=== PATIENT | male | born 1955 | race Caucasian/White ===

== ENCOUNTER → 2018-11-21 | Outpatient (CLI) | payer OTHER ==
[~2018-11-21] MED LIST: ATOR20TA37 PO; DIAZ5TAB PO; DOXY100C2 PO; DOXY25SU2 PO; FENO134C PO; INSU100I18 SC; INSU100I29 SC; LISI5TAB7 PO; METF10002 PO; OXYC-307 PO
[2018-11-21 11:55] LABS: MICROSCOPIC NOT IND
[2018-11-21 12:00] LABS: BASOPHILS # (AUTO) 0.02 x10^3/uL (0-0.1); BASOPHILS % (AUTO) 0 % (0-1); EOSINOPHILS # (AUTO) 0.07 x10^3/uL (0-0.4); EOSINOPHILS % (AUTO) 1 % (1-7); LYMPHOCYTES # (AUTO) 1.49 x10^3/uL (1-3.4); LYMPHOCYTES % (AUTO) 30 % (22-44); MD NO; MEAN CORPUSCULAR HEMOGLOBIN 29.7 pg (27.5-34.5); MEAN CORPUSCULAR HGB CONC 33.3 g/dL (33.2-36.2); MEAN CORPUSCULAR VOLUME 89.2 fL (81-97); MEAN PLATELET VOLUME 8.5 fL (7.4-10.4); MONOCYTES # (AUTO) 0.44 x10^3/uL (0.2-0.8); MONOCYTES % (AUTO) 9 % (2-9); NEUTROPHILS # (AUTO) 2.92 x10^3/uL (1.8-6.8); NEUTROPHILS % (AUTO) 59 % (42-75); PLATELET COUNT 251 x10^3/uL (130-400); RED BLOOD COUNT 5.01 x10^6/uL (4.38-5.82); RED CELL DISTRIBUTION WIDTH 13.6 % (9.4-14.8)
[2018-11-21 12:01] LABS: CULTURE INDICATED? NO
[2018-11-21 12:06] LABS: ALBUMIN 4.2 g/dL (3.4-5.0); ANION GAP 9 mmol/L (5-15); CALCIUM 9.1 mg/dL (8.5-10.1); CHLORIDE 104 mmol/L (98-107)
[2018-11-21 12:11] LABS: ALANINE AMINOTRANSFERASE 48 U/L (12-78); ALKALINE PHOSPHATASE 43 U/L (45-117); BILIRUBIN,TOTAL 0.5 mg/dL (0.2-1.0); CREATININE 1.36 mg/dL (0.7-1.3); TOTAL PROTEIN 7.1 g/dL (6.4-8.2)
[2018-11-21 12:21] LABS: HCT (SEDRATE) 44.7 % (39.2-51.8)
[2018-11-21 12:27] LABS: INTERNATIONAL NORMALIZED RATIO 1.01 (0.93-1.1); PROTHROMBIN TIME 10.7 Seconds (9.6-11.5)
== END | disposition home or self-care (01) ==
LOC: STAR 10:43
PROVIDERS: ATTEND Orthopaedic Surgery Orthopaedic Surgery of the Spine
DX: Z01.818 Encounter for other preprocedural examination (principal); M43.16 Spondylolisthesis, lumbar region; M48.061 Spinal stenosis, lumbar region without neurogenic claudication; M54.16 Radiculopathy, lumbar region; M41.86 Other forms of scoliosis, lumbar region
CPT/HCPCS: 36415; 71046; 80053; 81003; 85025; 85610; 85651; 85730; 93005

== ENCOUNTER 2018-12-04 10:37 | Inpatient (IN) | payer OTHER ==
[~2018-12-04] VITALS: Ht 177.8 cm; Wt 112.0 kg
[2018-12-04] MEDS ORDERED: THROMBIN 5,000 UNIT VIAL TP ONE ×2 (10:53→16:51)
[2018-12-04] MEDS ORDERED: VANCOMYCIN 1,000 MG ONE (10:53)
[2018-12-04] MEDS ORDERED: TRANEXAMIC ACID 100 MG/ML, 10ML ONE ×2 (10:53)
[2018-12-04] MEDS ORDERED: BUPIVACAINE/PF-EPI 0.5% 1:200K ONE (10:53)
[2018-12-04] MEDS ORDERED: BACITRACIN 50,000 UNIT ONE (10:53)
[2018-12-04] MEDS ORDERED: LACTATED RINGERS 1,000 ML IV SCH (11:28)
[2018-12-04] MEDS ORDERED: LIDOCAINE-MPF 1%, 2ML INFIL ONE (11:30)
[2018-12-04] MEDS ORDERED: VANCOMYCIN PMX 1GM/200ML 200 ML IV STA (12:08)
[2018-12-04] MEDS ORDERED: MIDAZOLAM 1 MG/ML, 2ML ONE (12:44)
[2018-12-04] MEDS ORDERED: FENTANYL PF 250 MCG/5ML ONE ×2 (12:44→16:29)
[2018-12-04] MEDS ORDERED: ROCURONIUM 10 MG/ML,10ML ONE (12:53)
[2018-12-04] MEDS ORDERED: GLYCOPYRROLATE 0.2MG/1ML, 5ML ONE (12:53)
[2018-12-04] MEDS ORDERED: SUCCINYLCHOLINE 20 MG/ML, 10ML ONE (12:53)
[2018-12-04] MEDS ORDERED: GABAPENTIN 300 MG CAPSULE PO ONE (13:00)
[2018-12-04] MEDS ORDERED: ACETAMINOPHEN 500 MG TABLET PO ONE (13:00)
[2018-12-04] MEDS ORDERED: DIAZEPAM 5 MG TABLET PO ONE (13:00)
[2018-12-04] MEDS ORDERED: SCOPOLAMINE PATCH, 1.5MG PATCH.TD72 TD ONE (13:00)
[2018-12-04] MEDS ORDERED: ALBUTEROL SULFATE 2.5 MG/3 ML NPPB PRN (16:30)
[2018-12-04] MEDS ORDERED: DIAZEPAM 5 MG/ML, 2ML IVPush PRN (16:30)
[2018-12-04] MEDS ORDERED: LORazepam 2 MG/ML, 1ML IVPush PRN (16:30)
[2018-12-04] MEDS ORDERED: hydrALAzine 20 MG/ML, 1ML IV PRN (16:30)
[2018-12-04] MEDS ORDERED: ONDANSETRON 2MG/ML, 2ML IV PRN (16:30)
[2018-12-04] MEDS ORDERED: ONDANSETRON ODT 8 MG PO PRN (16:30)
[2018-12-04] MEDS ORDERED: MORPHINE SULFATE 4 MG/ML, 1ML IVPush PRN (16:30)
[2018-12-04] MEDS ORDERED: LABETALOL 5MG/ML, 20ML IV PRN ×2 (16:30→22:00)
[2018-12-04] MEDS ORDERED: EPHEDRINE 50 MG/ML, 1ML IVPush PRN (16:30)
[2018-12-04] MEDS ORDERED: PROMETHAZINE 25 MG/ML, 1ML IV PRN (16:30)
[2018-12-04] MEDS ORDERED: FENTANYL PF 100 MCG/2ML IV PRN (16:30)
[2018-12-04] MEDS ORDERED: OXYcodone 5 MG/5 ML ORAL.SOL UDC PO PRN (16:30)
[2018-12-04] MEDS ORDERED: PROMETHAZINE 12.5 MG SUPP PR PRN (16:30)
[2018-12-04] MEDS ORDERED: MIDAZOLAM 1 MG/ML, 2ML IV PRN (16:30)
[2018-12-04] MEDS ORDERED: HALOPERIDOL 5 MG/ML IV PRN (16:30)
[2018-12-04] MEDS ORDERED: MEPERIDINE/PF 25MG/0.5ML IVPush PRN (16:30)
[2018-12-04] MEDS ORDERED: FENTANYL PF 100 MCG/2ML ONE ×2 (17:54→18:19)
[2018-12-04] MEDS ORDERED: ONDANSETRON 2MG/ML, 2ML ONE ×2 (18:03)
[2018-12-04] MEDS ORDERED: CEFAZOLIN 1,000 MG ONE ×2 (18:03)
[2018-12-04] MEDS ORDERED: PROPOFOL 10 MG/ML, 20ML ONE (18:03)
[2018-12-04] MEDS ORDERED: DEXAMETHASONE 4 MG/ML, 1ML ONE ×2 (18:03)
[2018-12-04] MEDS ORDERED: MEPERIDINE/PF 25MG/ML,1ML ONE (19:11)
[2018-12-04] MEDS ORDERED: HYDROmorphone 1 MG/ML, 1ML ONE (19:45)
[2018-12-04] MEDS ORDERED: OXYcodone 5 MG/5 ML ORAL.SOL UDC ONE (19:46)
[2018-12-04] MEDS: HYDROmorphone 2 MG/ML, 1ML IVPush PRN ×3 (19:50→20:15)
[2018-12-04] MEDS ORDERED: PROMETHAZINE 25 MG/ML, 1ML ONE (20:35)
[2018-12-04] MEDS ORDERED: DIAZEPAM 5 MG/ML, 2ML IV PRN (22:00)
[2018-12-04] MEDS ORDERED: DIPHENHYDRAMINE 50 MG/ML, 1ML IM PRN (22:00)
[2018-12-04] MEDS ORDERED: PROMETHAZINE 25 MG/ML, 1ML IM PRN (22:00)
[2018-12-04] MEDS ORDERED: DIPHENHYDRAMINE 50 MG CAPSULE PO PRN (22:00)
[2018-12-04] MEDS ORDERED: SODIUM CHLORIDE 0.9% 1,000ML IV PRN (22:00)
[2018-12-04] MEDS ORDERED: DEXAMETHASONE 4 MG/ML, 1ML IV PRN (22:00)
[2018-12-04] MEDS ORDERED: DIPHENHYDRAMINE 50 MG/ML, 1ML IVPush PRN (22:00)
[2018-12-04] MEDS ORDERED: ACETAMINOPHEN 650 MG SUPP PR PRN (22:00)
[2018-12-04] MEDS ORDERED: VANCOMYCIN PER PHARMACY MC PRN (22:30)
[2018-12-04] MEDS ORDERED: PHARMACOKINETIC MONITORING MC PRN (22:30)
[2018-12-04] MEDS: DIAZEPAM 5 MG TABLET PO PRN (22:59)
[2018-12-04] MEDS: CEFAZOLIN PMX 1GM/50ML 50 ML IVPB SCH (22:59)
[2018-12-04] MEDS: NS + 20MEQ KCL 1,000 ML IV SCH (22:59)
[2018-12-05 01:45] VITALS: BP 103/59
[2018-12-05] MEDS: ACETAMINOPHEN 325 MG TABLET PO PRN ×2 (02:36→13:26)
[2018-12-05] MEDS: OXYcodone IR 5MG TABLET PO PRN ×2 (02:36→06:24)
[2018-12-05 04:12] VITALS: BP 95/57
[2018-12-05 05:45] LABS: BASOPHILS % (AUTO) 0 % (0-1); EOSINOPHILS % (AUTO) 0 % (1-7); LYMPHOCYTES # (AUTO) 0.75 x10^3/uL (1-3.4); LYMPHOCYTES % (AUTO) 7 % (22-44); MD NO; MEAN CORPUSCULAR HEMOGLOBIN 30.5 pg (27.5-34.5); MEAN CORPUSCULAR HGB CONC 33.9 g/dL (33.2-36.2); MEAN PLATELET VOLUME 8.5 fL (7.4-10.4); MONOCYTES # (AUTO) 0.91 x10^3/uL (0.2-0.8); MONOCYTES % (AUTO) 9 % (2-9); NEUTROPHILS # (AUTO) 8.56 x10^3/uL (1.8-6.8); NEUTROPHILS % (AUTO) 84 % (42-75); PLATELET COUNT 200 x10^3/uL (130-400); RED BLOOD COUNT 3.52 x10^6/uL (4.38-5.82); RED CELL DISTRIBUTION WIDTH 13.7 % (9.4-14.8)
[2018-12-05 05:55] LABS: CREATININE 1.48 mg/dL (0.7-1.3)
[2018-12-05] MEDS: CEFAZOLIN PMX 1GM/50ML 50 ML IVPB SCH ×3 (06:24→22:38)
[2018-12-05] MEDS: INSULIN REGULAR 100 UNITS/ML, 3ML VIAL SQ-INSULIN SCH ×4 (07:10→21:00)
[2018-12-05] MEDS: INSULIN DETEMIR 100 UNITS/ML, PEN SQ-INSULIN SCH (07:40)
[2018-12-05 07:58] VITALS: BP 104/65
[2018-12-05] MEDS: DIAZEPAM 5 MG TABLET PO PRN ×3 (08:02→22:38)
[2018-12-05] MEDS: LISINOPRIL 5 MG TABLET PO SCH (08:31)
[2018-12-05] MEDS: metFORMIN 500 MG TABLET HOMEMEDPO SCH ×2 (08:31→16:30)
[2018-12-05] MEDS: FENOFIBRATE 145 MG TABLET PO SCH (08:31)
[2018-12-05] MEDS: NS + 20MEQ KCL 1,000 ML IV SCH ×2 (08:53→16:29)
[2018-12-05] MEDS: SENNA/DOCUSATE TABLET PO SCH (08:53)
[2018-12-05] MEDS: VANCOMYCIN 1,800 MG in SODIUM CHLORIDE 0.9% 250 ML IV SCH (08:53)
[2018-12-05] MEDS ORDERED: INSULIN DETEMIR 100 UNITS/ML, PEN SQ-INSULIN SCH (09:00)
[2018-12-05 13:26] VITALS: BP 96/64
[2018-12-05] MEDS: ONDANSETRON 2MG/ML, 2ML IV PRN (13:26)
[2018-12-05] MEDS: DEXAMETHASONE 4 MG/ML, 1ML IV PRN (16:29)
[2018-12-05 20:32] VITALS: BP 117/67
[2018-12-05] MEDS ORDERED: LEVEMIR 30 UNIT SQ SCH (21:00)
[2018-12-06 02:38] VITALS: BP 107/56
[2018-12-06] MEDS: VANCOMYCIN 1,800 MG in SODIUM CHLORIDE 0.9% 250 ML IV SCH ×2 (03:28→20:29)
[2018-12-06] MEDS: NS + 20MEQ KCL 1,000 ML IV SCH ×2 (04:00→15:08)
[2018-12-06 05:44] LABS: BASOPHILS # (AUTO) 0.01 x10^3/uL (0-0.1); BASOPHILS % (AUTO) 0 % (0-1); EOSINOPHILS % (AUTO) 0 % (1-7); LYMPHOCYTES # (AUTO) 0.97 x10^3/uL (1-3.4); LYMPHOCYTES % (AUTO) 9 % (22-44); MD NO; MEAN CORPUSCULAR HEMOGLOBIN 30.2 pg (27.5-34.5); MEAN CORPUSCULAR HGB CONC 33.6 g/dL (33.2-36.2); MEAN CORPUSCULAR VOLUME 89.9 fL (81-97); MEAN PLATELET VOLUME 7.9 fL (7.4-10.4); MONOCYTES # (AUTO) 1.14 x10^3/uL (0.2-0.8); MONOCYTES % (AUTO) 11 % (2-9); NEUTROPHILS # (AUTO) 8.26 x10^3/uL (1.8-6.8); NEUTROPHILS % (AUTO) 80 % (42-75); PLATELET COUNT 163 x10^3/uL (130-400); RED BLOOD COUNT 3.22 x10^6/uL (4.38-5.82); RED CELL DISTRIBUTION WIDTH 13.5 % (9.4-14.8)
[2018-12-06] MEDS: MAGNESIUM HYDROXIDE 8%, 30ML UDC PO PRN (06:38)
[2018-12-06] MEDS: CEFAZOLIN PMX 1GM/50ML 50 ML IVPB SCH ×3 (06:38→22:26)
[2018-12-06 06:43] VITALS: BP 121/67
[2018-12-06] MEDS: OXYcodone IR 5MG TABLET PO PRN ×4 (06:49→22:28)
[2018-12-06] MEDS: INSULIN DETEMIR 100 UNITS/ML, PEN SQ-INSULIN SCH ×2 (08:34→21:00)
[2018-12-06] MEDS: INSULIN REGULAR 100 UNITS/ML, 3ML VIAL SQ-INSULIN SCH ×4 (08:34→21:00)
[2018-12-06] MEDS: FENOFIBRATE 145 MG TABLET PO SCH (08:35)
[2018-12-06] MEDS: LISINOPRIL 5 MG TABLET PO SCH (08:35)
[2018-12-06] MEDS: metFORMIN 500 MG TABLET HOMEMEDPO SCH ×2 (08:35→16:21)
[2018-12-06] MEDS: SENNA/DOCUSATE TABLET PO SCH (08:40)
[2018-12-06] MEDS: morphine SULFATE 10 MG/ML, 1ML IV PRN (10:11)
[2018-12-06] MEDS: ONDANSETRON 2MG/ML, 2ML IV PRN (10:11)
[2018-12-06 13:17] VITALS: BP 121/76
[2018-12-06] MEDS: ACETAMINOPHEN 325 MG TABLET PO PRN (19:16)
[2018-12-06] MEDS: DIAZEPAM 5 MG TABLET PO PRN (19:16)
[2018-12-06 19:52] VITALS: BP 109/66
[2018-12-07 00:47] VITALS: BP 113/74
[2018-12-07] MEDS ORDERED: VANCOMYCIN 2,000 MG in SODIUM CHLORIDE 0.9% 500 ML IV SCH (04:00)
[2018-12-07] MEDS: ACETAMINOPHEN 325 MG TABLET PO PRN ×2 (04:45→08:46)
[2018-12-07] MEDS: OXYcodone IR 5MG TABLET PO PRN ×5 (04:45→21:09)
[2018-12-07 05:14] LABS: BASOPHILS # (AUTO) 0.02 x10^3/uL (0-0.1); BASOPHILS % (AUTO) 0 % (0-1); EOSINOPHILS # (AUTO) 0.01 x10^3/uL (0-0.4); EOSINOPHILS % (AUTO) 0 % (1-7); LYMPHOCYTES # (AUTO) 0.87 x10^3/uL (1-3.4); LYMPHOCYTES % (AUTO) 9 % (22-44); MD NO; MEAN CORPUSCULAR HGB CONC 33.4 g/dL (33.2-36.2); MEAN CORPUSCULAR VOLUME 89.9 fL (81-97); MEAN PLATELET VOLUME 8.4 fL (7.4-10.4); MONOCYTES # (AUTO) 0.86 x10^3/uL (0.2-0.8); MONOCYTES % (AUTO) 9 % (2-9); NEUTROPHILS # (AUTO) 7.63 x10^3/uL (1.8-6.8); NEUTROPHILS % (AUTO) 81 % (42-75); PLATELET COUNT 169 x10^3/uL (130-400); RED BLOOD COUNT 3.06 x10^6/uL (4.38-5.82); RED CELL DISTRIBUTION WIDTH 13.6 % (9.4-14.8)
[2018-12-07 05:22] LABS: CREATININE 1.11 mg/dL (0.7-1.3)
[2018-12-07] MEDS: DIAZEPAM 5 MG TABLET PO PRN ×3 (06:04→19:38)
[2018-12-07] MEDS: CEFAZOLIN PMX 1GM/50ML 50 ML IVPB SCH ×3 (06:05→23:35)
[2018-12-07 07:25] VITALS: BP 110/68
[2018-12-07] MEDS: INSULIN DETEMIR 100 UNITS/ML, PEN SQ-INSULIN SCH ×2 (07:30→21:23)
[2018-12-07] MEDS: NS + 20MEQ KCL 1,000 ML IV SCH ×3 (07:34→21:24)
[2018-12-07] MEDS: metFORMIN 500 MG TABLET HOMEMEDPO SCH ×2 (08:00→17:00)
[2018-12-07] MEDS: LISINOPRIL 5 MG TABLET PO SCH (08:45)
[2018-12-07] MEDS: INSULIN REGULAR 100 UNITS/ML, 3ML VIAL SQ-INSULIN SCH ×4 (08:45→21:22)
[2018-12-07] MEDS: FENOFIBRATE 145 MG TABLET PO SCH (08:46)
[2018-12-07] MEDS: SENNA/DOCUSATE TABLET PO SCH (08:46)
[2018-12-07] MEDS: morphine SULFATE 10 MG/ML, 1ML IV PRN ×3 (10:38→23:04)
[2018-12-07] MEDS: MAGNESIUM HYDROXIDE 8%, 30ML UDC PO PRN (12:59)
[2018-12-07 13:50] VITALS: BP 115/74
[2018-12-07] MEDS: VANCOMYCIN 1,800 MG in SODIUM CHLORIDE 0.9% 250 ML IV SCH (15:31)
[2018-12-07] MEDS ORDERED: SODIUM CHLORIDE NASAL SPRAY 45ML BOTTLE NAS PRN (18:00)
[2018-12-07 19:27] VITALS: BP 150/94
[2018-12-08] MEDS: OXYcodone IR 5MG TABLET PO PRN ×2 (01:26→05:45)
[2018-12-08] MEDS: DIAZEPAM 5 MG TABLET PO PRN (01:26)
[2018-12-08 01:27] VITALS: BP 114/67
[2018-12-08] MEDS: VANCOMYCIN 2,000 MG in SODIUM CHLORIDE 0.9% 500 ML IV SCH (04:35)
[2018-12-08 05:31] LABS: BASOPHILS # (AUTO) 0.02 x10^3/uL (0-0.1); BASOPHILS % (AUTO) 0 % (0-1); EOSINOPHILS # (AUTO) 0.07 x10^3/uL (0-0.4); EOSINOPHILS % (AUTO) 1 % (1-7); LYMPHOCYTES # (AUTO) 1.29 x10^3/uL (1-3.4); LYMPHOCYTES % (AUTO) 16 % (22-44); MD NO; MEAN CORPUSCULAR HEMOGLOBIN 30.7 pg (27.5-34.5); MEAN CORPUSCULAR HGB CONC 34.4 g/dL (33.2-36.2); MEAN CORPUSCULAR VOLUME 89.3 fL (81-97); MONOCYTES # (AUTO) 0.79 x10^3/uL (0.2-0.8); MONOCYTES % (AUTO) 10 % (2-9); NEUTROPHILS # (AUTO) 6.08 x10^3/uL (1.8-6.8); NEUTROPHILS % (AUTO) 74 % (42-75); PLATELET COUNT 196 x10^3/uL (130-400); RED BLOOD COUNT 2.96 x10^6/uL (4.38-5.82); RED CELL DISTRIBUTION WIDTH 13.5 % (9.4-14.8)
[2018-12-08] MEDS: NS + 20MEQ KCL 1,000 ML IV SCH ×2 (06:09→16:00)
[2018-12-08] MEDS: INSULIN REGULAR 100 UNITS/ML, 3ML VIAL SQ-INSULIN SCH ×4 (07:00→21:00)
[2018-12-08] MEDS: CEFAZOLIN PMX 1GM/50ML 50 ML IVPB SCH ×3 (07:56→23:23)
[2018-12-08 08:00] VITALS: BP 117/76
[2018-12-08] MEDS: metFORMIN 500 MG TABLET HOMEMEDPO SCH ×2 (08:00→16:42)
[2018-12-08] MEDS: LISINOPRIL 5 MG TABLET PO SCH (08:04)
[2018-12-08] MEDS: FENOFIBRATE 145 MG TABLET PO SCH (08:07)
[2018-12-08] MEDS: SENNA/DOCUSATE TABLET PO SCH (08:07)
[2018-12-08] MEDS: INSULIN DETEMIR 100 UNITS/ML, PEN SQ-INSULIN SCH ×2 (08:08→23:23)
[2018-12-08] MEDS: KETOROLAC 30 MG/1 ML IV PRN ×2 (08:15→16:56)
[2018-12-08] MEDS: MAGNESIUM HYDROXIDE 8%, 30ML UDC PO PRN (08:15)
[2018-12-08 12:53] VITALS: BP 108/72
[2018-12-08] MEDS: DEXAMETHASONE 4 MG/ML, 1ML IV PRN (16:57)
[2018-12-08 20:40] VITALS: BP 135/76
[2018-12-09] MEDS: KETOROLAC 30 MG/1 ML IV PRN ×2 (00:52→11:25)
[2018-12-09] MEDS: DEXAMETHASONE 4 MG/ML, 1ML IV PRN (00:52)
[2018-12-09] MEDS: VANCOMYCIN 2,000 MG in SODIUM CHLORIDE 0.9% 500 ML IV SCH ×2 (00:52→18:00)
[2018-12-09 03:44] VITALS: BP 144/85
[2018-12-09] MEDS: NS + 20MEQ KCL 1,000 ML IV SCH ×3 (05:00→23:52)
[2018-12-09] MEDS: BISACODYL 10 MG SUPP PR PRN (06:24)
[2018-12-09] MEDS: CEFAZOLIN PMX 1GM/50ML 50 ML IVPB SCH ×3 (06:24→22:44)
[2018-12-09] MEDS: INSULIN REGULAR 100 UNITS/ML, 3ML VIAL SQ-INSULIN SCH ×4 (07:42→20:52)
[2018-12-09] MEDS: LISINOPRIL 5 MG TABLET PO SCH (07:50)
[2018-12-09] MEDS: metFORMIN 500 MG TABLET HOMEMEDPO SCH ×2 (07:50→15:56)
[2018-12-09] MEDS: FENOFIBRATE 145 MG TABLET PO SCH (07:50)
[2018-12-09] MEDS: SENNA/DOCUSATE TABLET PO SCH (07:50)
[2018-12-09] MEDS: INSULIN DETEMIR 100 UNITS/ML, PEN SQ-INSULIN SCH ×2 (07:50→20:53)
[2018-12-09 07:53] VITALS: BP 130/88
[2018-12-09] MEDS: DIAZEPAM 5 MG TABLET PO PRN ×3 (08:46→23:34)
[2018-12-09 13:30] VITALS: BP 159/90
[2018-12-09 18:52] VITALS: BP 139/75
[2018-12-10] MEDS: ZOLPIDEM 5MG TABLET PO PRN ×2 (00:16→02:57)
[2018-12-10 01:47] VITALS: BP 114/80
[2018-12-10] MEDS: MAGNESIUM HYDROXIDE 8%, 30ML UDC PO PRN (02:57)
[2018-12-10] MEDS: morphine SULFATE 10 MG/ML, 1ML IV PRN ×2 (02:57→20:03)
[2018-12-10] MEDS: DIAZEPAM 5 MG TABLET PO PRN ×2 (05:59→18:31)
[2018-12-10] MEDS: OXYcodone IR 5MG TABLET PO PRN ×5 (05:59→21:57)
[2018-12-10] MEDS: BISACODYL 10 MG SUPP PR PRN (05:59)
[2018-12-10] MEDS: CEFAZOLIN PMX 1GM/50ML 50 ML IVPB SCH ×3 (06:00→23:13)
[2018-12-10] MEDS: INSULIN REGULAR 100 UNITS/ML, 3ML VIAL SQ-INSULIN SCH ×4 (06:06→23:12)
[2018-12-10] MEDS: metFORMIN 500 MG TABLET HOMEMEDPO SCH ×2 (08:50→18:49)
[2018-12-10] MEDS: FENOFIBRATE 145 MG TABLET PO SCH (08:52)
[2018-12-10] MEDS: SENNA/DOCUSATE TABLET PO SCH (08:52)
[2018-12-10] MEDS: LISINOPRIL 5 MG TABLET PO SCH (08:53)
[2018-12-10 08:56] VITALS: BP 130/82
[2018-12-10] MEDS: INSULIN DETEMIR 100 UNITS/ML, PEN SQ-INSULIN SCH (08:57)
[2018-12-10] MEDS: NS + 20MEQ KCL 1,000 ML IV SCH ×2 (11:00→21:00)
[2018-12-10] MEDS ORDERED: LACTOBACILLUS CHEW TABLET PO PRN (11:30)
[2018-12-10] MEDS: VANCOMYCIN 2,000 MG in SODIUM CHLORIDE 0.9% 500 ML IV SCH (11:41)
[2018-12-10 14:30] VITALS: BP 124/75
[2018-12-10 16:20] VITALS: BP 125/78
[2018-12-10 20:04] VITALS: BP 137/88
[2018-12-10] MEDS: INSULIN GLARGINE 100 UNITS/ML, PEN SQ-INSULIN SCH (23:13)
[2018-12-11] MEDS: DIAZEPAM 5 MG TABLET PO PRN ×3 (02:20→17:33)
[2018-12-11 02:30] VITALS: BP 132/85
[2018-12-11] MEDS: OXYcodone IR 5MG TABLET PO PRN ×5 (04:31→21:11)
[2018-12-11] MEDS: VANCOMYCIN 2,000 MG in SODIUM CHLORIDE 0.9% 500 ML IV SCH (06:45)
[2018-12-11] MEDS: INSULIN REGULAR 100 UNITS/ML, 3ML VIAL SQ-INSULIN SCH ×4 (07:00→21:10)
[2018-12-11] MEDS: NS + 20MEQ KCL 1,000 ML IV SCH ×2 (07:00→17:00)
[2018-12-11] MEDS: metFORMIN 500 MG TABLET HOMEMEDPO SCH ×2 (07:42→18:12)
[2018-12-11] MEDS: CEFAZOLIN PMX 1GM/50ML 50 ML IVPB SCH ×2 (08:39→18:11)
[2018-12-11] MEDS: LISINOPRIL 5 MG TABLET PO SCH (08:39)
[2018-12-11] MEDS: INSULIN GLARGINE 100 UNITS/ML, PEN SQ-INSULIN SCH ×2 (08:39→21:10)
[2018-12-11 08:40] VITALS: BP 130/79
[2018-12-11] MEDS: SENNA/DOCUSATE TABLET PO SCH (09:00)
[2018-12-11] MEDS: morphine SULFATE 10 MG/ML, 1ML IV PRN ×2 (10:11→13:22)
[2018-12-11] MEDS: FENOFIBRATE 145 MG TABLET PO SCH (11:24)
[2018-12-11] MEDS ORDERED: OXYcodone ORAL.CONC 20 MG/ML PO PRN (13:30)
[2018-12-11] MEDS ORDERED: OXYcodone IR 5MG TABLET ONE (15:13)
[2018-12-11 15:37] VITALS: BP 128/79
[2018-12-11 20:48] VITALS: BP 115/73
[2018-12-12] MEDS: VANCOMYCIN 2,000 MG in SODIUM CHLORIDE 0.9% 500 ML IV SCH (00:31)
[2018-12-12] MEDS: OXYcodone IR 5MG TABLET PO PRN ×5 (00:32→14:24)
[2018-12-12 02:40] VITALS: BP 104/71
[2018-12-12] MEDS: CEFAZOLIN PMX 1GM/50ML 50 ML IVPB SCH ×2 (02:58→11:06)
[2018-12-12] MEDS: NS + 20MEQ KCL 1,000 ML IV SCH ×2 (03:00→13:00)
[2018-12-12] MEDS: INSULIN REGULAR 100 UNITS/ML, 3ML VIAL SQ-INSULIN SCH ×2 (07:00→11:00)
[2018-12-12 08:00] VITALS: BP 115/74
[2018-12-12] MEDS: INSULIN GLARGINE 100 UNITS/ML, PEN SQ-INSULIN SCH (08:28)
[2018-12-12] MEDS: metFORMIN 500 MG TABLET HOMEMEDPO SCH (08:29)
[2018-12-12] MEDS: FENOFIBRATE 145 MG TABLET PO SCH (08:29)
[2018-12-12] MEDS: LISINOPRIL 5 MG TABLET PO SCH (08:30)
[2018-12-12] MEDS: SENNA/DOCUSATE TABLET PO SCH (08:34)
[2018-12-12 08:40] VITALS: BP 116/68
[2018-12-12 13:00] VITALS: BP 98/68
[2018-12-12] MEDS ORDERED: OXYC5CAP2 PO (14:00)
[2018-12-12] MEDS ORDERED: DIAZ5TAB4 PO (14:01)
[2018-12-12] MEDS ORDERED: CEPH-368 PO (14:01)
== END 2018-12-12 15:18 | disposition home health service (06) | DRG 455 ==
LOC: ORIP 10:37 → 4NOR 21:05 → DCLOUNGE 12-12 15:01
PROVIDERS: ADMIT Orthopaedic Surgery Orthopaedic Surgery of the Spine; ATTEND Orthopaedic Surgery Orthopaedic Surgery of the Spine
PROC: 0SG1071 Fusion of 2 or more Lumbar Vertebral Joints with Autologous Tissue Substitute, Posterior Approach, Posterior Column, Open Approach (ICD-10-PCS; 2018-12-04)
PROC: 0SG3071 Fusion of Lumbosacral Joint with Autologous Tissue Substitute, Posterior Approach, Posterior Column, Open Approach (ICD-10-PCS; 2018-12-04)
PROC: 0SP004Z Removal of Internal Fixation Device from Lumbar Vertebral Joint, Open Approach (ICD-10-PCS; 2018-12-04)
PROC: 0ST20ZZ Resection of Lumbar Vertebral Disc, Open Approach (ICD-10-PCS; 2018-12-04)
PROC: 4A11X4G Monitoring of Peripheral Nervous Electrical Activity, Intraoperative, External Approach (ICD-10-PCS; 2018-12-04)
PROC: 0SG10AJ Fusion of 2 or more Lumbar Vertebral Joints with Interbody Fusion Device, Posterior Approach, Anterior Column, Open Approach (ICD-10-PCS; principal; 2018-12-04 12:30)
DX: M43.16 Spondylolisthesis, lumbar region (principal); M47.27 Other spondylosis with radiculopathy, lumbosacral region; M48.061 Spinal stenosis, lumbar region without neurogenic claudication; I10 Essential (primary) hypertension; E11.9 Type 2 diabetes mellitus without complications; G89.29 Other chronic pain; E78.5 Hyperlipidemia, unspecified
CPT/HCPCS: 36415; 72110; J3490; 80202; 82565; 82962; 84520; 85025; 86850; 86900; C1713; G0378; J0690; J1100; J1170; J1815; J1885; J2175; J2250; J2270; J2405; J2550; J2704; J3010; J3370; J3480; C1760; C1762; C1763; C9362; J0330; J7040; J7050; J7120